=== PATIENT | male | born 1975 | race Caucasian/White ===

== ENCOUNTER 2018-03-08 09:03 | Inpatient (IN) | payer BC, OTHER ==
[2018-03-08] MEDS ORDERED: LIDOCAINE 1% 2 ML INJ ID PRN (12:30)
[2018-03-08] MEDS ORDERED: LR 1,000 ML IV ONE (12:30)
[2018-03-08] MEDS ORDERED: SURGIFLO MATRIX KIT WITH THROMBIN 8 ML TP ONE ×2 (13:01→15:52)
[2018-03-08] MEDS ORDERED: CHLORHEXIDINE GLUC HIBICLENS 118 ML BTL TP ONE (13:01)
[2018-03-08] MEDS ORDERED: BUPIVACAINE 0.25% 30 ML SDV ONE (13:01)
[2018-03-08] MEDS ORDERED: BACITRACIN 50,000 UNITS/10 ML SYR IRR ONE (13:02)
[2018-03-08] MEDS ORDERED: EPINEPHrine 1 MG/ML INJ ONE (13:02)
[2018-03-08] MEDS ORDERED: THROMBIN (BOVINE) 5,000 UNIT VIAL TP ONE (13:02)
[2018-03-08 13:11] LABS: PLATELET COUNT 233 10^3/uL (150-400)
[2018-03-08] MEDS ORDERED: MIDAZOLAM 2 MG/2 ML VIAL IVP ONE (13:23)
--- NOTE | 2018-03-08 13:23 | PDANEPAE ---
ANE History of Present Illness T10-L2 fusion ANE Past Medical History - Cardiovascular History Hx Hypertension: Yes Hx Arrhythmias: No Hx Chest Pain: No Hx Coronary Artery / Peripheral Vascular Disease: No Hx CHF / Valvular Disease: No Hx Palpitations: No - Pulmonary History Hx COPD: No Hx Asthma/Reactive Airway Disease: No Hx Recent Upper Respiratory Infection: No Hx Oxygen in Use at Home: No Hx Sleep Apnea: No Sleep Apnea Screening Result - Last Documented: Negative - Neurologic History Hx Cerebrovascular Accident: No Hx Seizures: No Hx Dementia: No - Endocrine History Hx Diabetes: No Obesity: yes - Renal History Hx Renal Disorders: No - Liver History Hx Hepatic Disorders: No - Neurological & Psychiatric Hx Hx Neurological and Psychiatric Disorders: Yes Neurological / Psychiatric History Comment: ADHD - Cancer History Hx Cancer: No - Congenital Disorder History Hx Congenital Disorders: No - GI History Hx Gastrointestinal Disorders: No - Other Health History Other Health History: NEG - Chronic Pain History Chronic Pain: Yes (BACK PAIN) - Surgical History Prior Surgeries: L ARM LYMPH NODE. HAND FX REPAIR R. HARDWARE REM R HAND. FOOT SURG FX REPAIR R. L THUMB LAC REPAIR ANE Review of Systems Review of Systems: - Exercise capacity METS (RN): 5 METS ANE Patient History - Allergies Allergies/Adverse Reactions: No Known Allergies Allergy (Unverified 03/07/18 15:37) - Home Medications Home Medications: Dextroamphetamine/Amphetamine [Adderall Xr 30 mg Capsule] 30 mg PO DAILY@07 [Last Taken 03/07/18] Lisinopril [Zestril 20 mg (*)] 20 mg PO HS 03/07/18 [Last Taken 03/07/18] Magnesium Oxide 250 mg PO DAILY 03/07/18 [Last Taken 03/07/18] Pramipexole Di-HCl [Mirapex 1 mg (*)] 1 mg PO 1800,2100 03/07/18 [Last Taken ] traZODone [traZODONE 50MG (*)] 150 mg PO HS 03/07/18 [Last Taken 03/07/18] - NPO status NPO Since - Liquids (Date): 03/08/18 NPO Since - Liquids (Time): 10:00 NPO Since - Solids (Date): 03/07/18 NPO Since - Solids (Time): 21:00 - Smoking Hx Smoking Status: Former smoker - Family Anes Hx Family Hx Anesthesia Complications: NEG ANE Labs/Vital Signs - Labs Result Diagrams: 03/08/18 12:56 - Vital Signs Blood Pressure: 131/82 Heart Rate: 78 Respiratory Rate: 18 O2 Sat (%): 95 Height: 185.42 cm Weight: 115.666 kg ANE Physical Exam - Airway Neck exam: FROM Mallampati Score: Class 1 - Pulmonary Pulmonary: no respiratory distress - Cardiovascular Cardiovascular: regular rate and rhythym - ASA Status ASA Status: II ANE Anesthesia Plan Anesthesia Plan: general endotracheal anesthesia Lines/Monitors: arterial line Specialized Airway: video laryngoscope
[2018-03-08] MEDS ORDERED: fentaNYL 100 MCG/2 ML INJ ONE ×3 (13:27→19:01)
[2018-03-08] MEDS ORDERED: REMIFENTANIL HCL 1 MG VIAL ONE ×3 (13:27→17:21)
[2018-03-08] MEDS ORDERED: MIDAZOLAM 2 MG/2 ML VIAL ONE (13:27)
[2018-03-08] MEDS ORDERED: PROPOFOL/EMULSION 500 MG/50 ML BOTTLE IV ONE ×3 (13:28→16:41)
[2018-03-08] MEDS ORDERED: ceFAZolin 2 GM/DEXTROSE 100 ML IV ONE (13:31)
--- NOTE | 2018-03-08 13:31 | PDHPUP ---
History & Physical Update H&P update statement: This history and physical update is based on an assessment of the patient which was completed after admission or registration (within 24 hours), but prior to the surgery/procedure. H&P update: H&P reviewed & patient examined, no change in patient's condition since H&P completed
[2018-03-08] MEDS ORDERED: CEFAZOLIN 2 GM/DEXTROSE/100 ML BAG IV ONE (13:41)
[2018-03-08] MEDS ORDERED: CITRATE DEXTROSE SOLN 500 ML BAG ONE (13:55)
[2018-03-08] MEDS ORDERED: POLYETHYLENE GLYCOL 3350 17 GM PKT PO PRN (14:07)
[2018-03-08] MEDS ORDERED: LACTULOSE 20 GM/30 ML UDCUP PO PRN (14:07)
[2018-03-08] MEDS ORDERED: diphenhydrAMINE 25 MG CAP PO PRN (14:07)
[2018-03-08] MEDS ORDERED: ONDANSETRON DISINTEGRATING 4 MG TAB PO PRN (14:07)
[2018-03-08] MEDS ORDERED: MAGNESIUM HYDROXIDE 30 ML UDCUP PO PRN (14:07)
[2018-03-08] MEDS ORDERED: ONDANSETRON 4 MG/2 ML VIAL IVP PRN ×2 (14:07→18:08)
[2018-03-08] MEDS ORDERED: BISACODYL 10 MG SUPP PR PRN (14:07)
[2018-03-08] MEDS ORDERED: ROCURONIUM 50 MG/5 ML VIAL ONE ×3 (14:33→15:23)
[2018-03-08] MEDS ORDERED: ONDANSETRON 4 MG/2 ML VIAL ONE (14:33)
[2018-03-08] MEDS ORDERED: DEXAMETHASONE 4 MG/ML VIAL ONE (14:33)
[2018-03-08] MEDS ORDERED: PHENYLEPHRINE 10 MG/ML SDV ONE (14:37)
--- NOTE | 2018-03-08 15:14 | POSTANESTH ---
Post Anesthetic Evaluation Cardiovascular Status: Normal, Stable Respiratory Status: Normal, Stable Level of Consciousness/Mental Status: Can Participate in Eval, Alert and Oriented Pain Control: Adequate, Prn Tx Ordered Nausea/Vomiting Control: Adequate, Prn Tx Ordered Complications Possibly Related to Anesthesia: None Noted
[2018-03-08] MEDS ORDERED: HYDROmorphONE/DILAUDID 2 MG/ML INJ ONE (15:25)
--- NOTE | 2018-03-08 17:20 | PDMN ---
Medical Necessity Medical necessity: Pt meets inpt criteria per MD order and [facility] S-820, Lumbar Fusion, 3 days. Est LOS>2MN for pt w/hx of thoracic spinal stenosis w/ radiculopathy here for surgical intervention: T11-T12 Lumbar discectomy, T11-L1 Lumbar fusion requiring inpt hospitalization for monitoring/treatment, pain management, PT/OT evals pending.
[2018-03-08] MEDS ORDERED: BUPIVACAINE 0.5% 30 ML SDV ONE (17:38)
[2018-03-08] MEDS ORDERED: ESMOLOL HCL 100 MG/10 ML VIAL IV ONE (17:39)
[2018-03-08] MEDS ORDERED: PHENYLEPHRINE HCL 100 MCG/ML SYR IVP PRN (18:08)
[2018-03-08] MEDS ORDERED: oxyCODONE IR 5 MG TAB PO PRN (18:08)
[2018-03-08] MEDS ORDERED: HYDROCODONE/APAP 5/325 TAB PO PRN (18:08)
[2018-03-08] MEDS ORDERED: NALOXONE HCL 0.4 MG/ML INJ IVP PRN ×2 (18:08→21:01)
[2018-03-08] MEDS ORDERED: ALBUTEROL 3 ML DEYVIAL IH PRN (18:08)
[2018-03-08] MEDS ORDERED: ACETAMINOPHEN 500 MG TAB PO PRN (18:08)
[2018-03-08] MEDS ORDERED: PROMETHAZINE HCL 25 MG/ML INJ IVP PRN (18:08)
[2018-03-08] MEDS ORDERED: LABETALOL HCL 5 MG/ML 20 ML MDV IVP PRN (18:08)
[2018-03-08] MEDS ORDERED: LR 500 ML IV PRN (18:08)
[2018-03-08] MEDS ORDERED: LABETALOL HCL 5 MG/ML 20 ML MDV ONE (18:54)
[2018-03-08] MEDS: fentaNYL 100 MCG/2 ML INJ IVP PRN ×2 (19:02→19:12)
--- NOTE | 2018-03-08 19:03 | NEUSURGPN ---
Date of Surgery: 03/08/18 Post Op Day: 0 Assessment/Plan: 42M s/p T11/12 discectomy and T11-L1 fusion. To Floor ADAT neuro checks q4h optimize pain management JPx1 to full suction DVT ppx- RAMESH's, SCD's, lovenox POD#1 MRI in AM upright post op XRays when able to give good effort PT/OT Dispo planning dw Dr. Peter Subjective: having a great deal of post operative right leg pain, worse than prior to surgery. also with some left leg pain. hurts to lift leg as well. Objective: VSS NAD Alert, post anesthesia no facial droop MAEx4, 5/5= SILT incision dressed, CDI JPx1 Urinary Catheter in Place: Yes Urinary Catheter Indication: Other (Use Comment) (out in am) - Physician Discussed Patient with Dr.: Peter Neurosurgery Physical Exam - Vitals, I&O, Labs I and O 03/07/18 03/08/18 03/09/18 05:59 05:59 05:59 Weight 115.666 kg 115.666 kg Vital Signs Temp Pulse Resp BP Pulse Ox 36.9 C 78 18 131/82 H 95 03/08/18 12:46 03/08/18 13:23 03/08/18 13:23 03/08/18 13:23 03/08/18 13:23 Laboratory Results 03/08/18 12:56 ICD10 Worksheet Patient Problems: Problems Problem Status Onset Thoracic spinal stenosis Acute Thoracic spinal stenosis Acute - ICD10 Problem Qualifiers (1) Thoracic spinal stenosis (2) Thoracic spinal stenosis
--- NOTE | 2018-03-08 19:04 | POSTOPPROG ---
Post Op Note Date of Operation: 03/08/18 Surgeon: Obey Rasheed Lead Systems Analyst: Obey Rasheed Anesthesiologist: jd Ozuna Anesthesia: GET(General Endotracheal) Pre-op Diagnosis: thoracic spinal stenosis with radiculopathy Post-op Diagnosis: thoracic spinal stenosis with radiculopathy Indication: spinal cord compression Procedure: T11/12 microdiscectomy, pedicle osteotomy, T11-L1 PSF Findings: well decompressed thoracic spine at T11/12 Inf/Abcess present in the surg proc area at time of surgery?: No Depth: Organ Space EBL: 100-500
[2018-03-08] MEDS ORDERED: HYDROmorphONE/DILAUDID 1 MG/ML INJ ONE ×3 (19:08→21:04)
[2018-03-08] MEDS: HYDROmorphONE/DILAUDID 1 MG/ML INJ IVP PRN ×6 (19:11→21:18)
[2018-03-08] MEDS ORDERED: DIAZEPAM 5 MG/ML 1 ML SYR ONE ×2 (19:14→20:09)
[2018-03-08] MEDS: DIAZEPAM 5 MG/ML 1 ML SYR IVP PRN ×4 (19:17→21:10)
[2018-03-08] MEDS ORDERED: METHOCARBAMOL 1,000 MG in NS 50 ML IVP ONE (19:25)
[2018-03-08] MEDS ORDERED: GABAPENTIN 300 MG CAP PO SCH (22:00)
[2018-03-08] MEDS: DEXMEDETOMIDINE HCL 400 MCG in NS 100 ML IV SCH (22:29)
[2018-03-08] MEDS ORDERED: DEXAMETHASONE 10 MG/ML VIAL IV ONE (22:30)
[2018-03-08] MEDS ORDERED: DEXAMETHASONE 4 MG/ML VIAL IVP SCH (22:30)
[2018-03-08] MEDS: ceFAZolin 2 GM/DEXTROSE 100 ML IV SCH (22:32)
[2018-03-08] MEDS: LISINOPRIL 20 MG TAB PO SCH (22:45)
[2018-03-08] MEDS: ACETAMINOPHEN 500 MG TAB PO SCH (22:45)
[2018-03-08] MEDS: traZODone 50 MG TAB PO SCH (22:46)
[2018-03-08] MEDS: FAMOTIDINE 20 MG TAB PO SCH (22:46)
[2018-03-08] MEDS: SENNOSIDES/DOCUSATE SODIUM TAB PO SCH (22:46)
[2018-03-09] MEDS: DEXMEDETOMIDINE HCL 400 MCG in NS 100 ML IV SCH ×5 (01:44→21:53)
[2018-03-09] MEDS: PRAMIPEXOLE 1 MG TAB PO SCH ×3 (02:50→21:44)
[2018-03-09] MEDS: PREGABALIN 100 MG CAP PO SCH ×4 (02:51→21:44)
[2018-03-09] MEDS: DEXAMETHASONE 4 MG/ML VIAL IVP SCH ×3 (04:00→15:30)
[2018-03-09] MEDS: ACETAMINOPHEN 500 MG TAB PO SCH ×3 (05:19→21:44)
[2018-03-09] MEDS: ceFAZolin 2 GM/DEXTROSE 100 ML IV SCH ×2 (05:25→15:00)
[2018-03-09] MEDS: oxyCODONE IR 5 MG TAB PO PRN ×4 (05:40→16:09)
[2018-03-09] MEDS: AMPHETAMINE PO SCH (07:58)
[2018-03-09] MEDS: DEXTROAMPHETAMINE PO SCH (07:58)
[2018-03-09] MEDS: ENOXAPARIN 40 MG/0.4 ML SYR SC SCH (08:21)
[2018-03-09] MEDS: METHOCARBAMOL 750 MG TAB PO PRN ×2 (08:22→14:14)
[2018-03-09] MEDS: FAMOTIDINE 20 MG TAB PO SCH ×2 (08:22→21:44)
[2018-03-09] MEDS: SENNOSIDES/DOCUSATE SODIUM TAB PO SCH ×2 (08:22→21:44)
--- NOTE | 2018-03-09 09:57 | NEUSURGPN ---
Assessment/Plan: 42M s/p T11/12 discectomy and T11-L1 fusion POD1 neuro checks q4h optimize pain management- On Lyrica already JPx1 to full suction DVT ppx- RAMESH's, SCD's, lovenox MRI pending upright post op X-rays when able to give good effort PT/OT dw Dr. Peter Subjective: right anterior oglesby pain Objective: NAD Alert, post anesthesia no facial droop MAEx4, 5/5= SILT, increased pain to touch over right anterior oglesby incision dressed, CDI JPx1 - Physician Discussed Patient with Dr.: Peter Neurosurgery Physical Exam - Vitals, I&O, Labs I and O 03/08/18 03/09/18 03/10/18 05:59 05:59 05:59 Intake Total 6670 700 Output Total 3950 30 Balance 2720 670 Weight 115.666 kg 115.666 kg Intake: Oral (ml) 1270 700 IV Intake (ml) 5400 Output: Urine (ml) 2720 Catheter 2720 Estimated Blood Loss (ml) 1000 ANDI Drain Output (ml) 230 30 Back Valentin Kraft 230 30 Other: Number of Stools Catheter 0 Vital Signs Temp Pulse Resp BP Pulse Ox 36.6 C 77 18 110/68 97 03/09/18 07:35 03/09/18 07:35 03/09/18 07:35 03/09/18 07:35 03/09/18 07:35 Laboratory Results 03/08/18 12:56 ICD10 Worksheet Patient Problems: Problems Problem Status Onset Thoracic spinal stenosis Acute Thoracic spinal stenosis Acute
[2018-03-09] MEDS ORDERED: ALBUMIN 5% 500 ML IV ONE ×2 (14:06→14:30)
[2018-03-09] MEDS ORDERED: ALBUMIN 5% 500 ML BOTTLE IV ONE (14:10)
[2018-03-09] MEDS ORDERED: PATCH REMOVAL 1 EA PATCH TD PRN (14:12)
[2018-03-09] MEDS ORDERED: DIAZEPAM 5 MG TAB PO ONE (14:15)
--- NOTE | 2018-03-09 14:22 | ASMTCMCOM ---
CM Note CM Note Notes: Pt admitted to hospital for T11 - T12 discectomy and fusion on 03/08. Pain now managed with IV pain medications. Pt lives at home with Doris. Therapies are recommending discharge home independently with 24-hr supervision and outpatient PT. D/C Plan: Home independently with Date Signed: 03/09/2018 02:22 PM Electronically Signed By:Vilma Alaniz
[2018-03-09] MEDS ORDERED: NS 1,000 ML IV ONE (14:30)
[2018-03-09] MEDS: LIDOCAINE 4%/MENTHOL 1% PATCH TD PRN (14:30)
[2018-03-09] MEDS ORDERED: DOPamine/DEXTROSE 400 MG/250 ML BAG IV ONE (14:51)
[2018-03-09] MEDS ORDERED: ALTEPLASE 2 MG VIAL IVP PRN (15:25)
[2018-03-09] MEDS: HYDROmorphONE/DILAUDID 1 MG/ML INJ IVP PRN (16:09)
[2018-03-09] MEDS ORDERED: DIAZEPAM 5 MG TAB PO PRN (16:55)
--- NOTE | 2018-03-09 17:12 | CPEKG ---
Test Reason : OPEN Blood Pressure : / mmHG Vent. Rate : 057 BPM Atrial Rate : 056 BPM P-R Int : 142 ms QRS Dur : 095 ms QT Int : 423 ms P-R-T Axes : 020 -11 -04 degrees QTc Int : 412 ms Sinus rhythm Borderline T abnormalities, inferior leads Confirmed by Hima Pat ([id number]) on 03/09/2018 5:11:30 PM Referred By: Confirmed By:Hima Pat
[2018-03-09] MEDS ORDERED: DEXAMETHASONE 4 MG/ML VIAL IVP SCH (17:15)
[2018-03-09] MEDS: morphINE PCA 30 MG/30 ML PCA IV PRN (19:05)
[2018-03-09] MEDS: traZODone 50 MG TAB PO SCH (21:43)
[2018-03-10] MEDS: DEXAMETHASONE 4 MG/ML VIAL IVP SCH ×2 (04:07→15:33)
[2018-03-10] MEDS: DEXMEDETOMIDINE HCL 400 MCG in NS 100 ML IV SCH ×3 (04:07→18:32)
[2018-03-10] MEDS: ACETAMINOPHEN 500 MG TAB PO SCH ×3 (05:19→23:45)
[2018-03-10] MEDS: oxyCODONE IR 5 MG TAB PO PRN ×4 (05:19→20:31)
--- NOTE | 2018-03-10 05:35 | GCON ---
[f rep st] CONSULTATION CRITICAL CARE CONSULTATION DATE OF CONSULTATION: 03/09/2018 REASON FOR CONSULTATION: Intensive care unit evaluation and medical management following thoracic spine surgery from T11-L1. HISTORY: The patient is a 42-year-old with severe thoracic stenosis and disk herniation with cord compression. He underwent elective surgery yesterday with T11/T12 diskectomy and fusion from T11-L1. He was admitted to the intensive care unit secondary to pain management. He has had significant pain associated with spasm and anxiety. Blood pressure has been an issue, with lower blood pressures problematic secondary to pain and sedative medications. PAST MEDICAL HISTORY: Remarkable for attention deficit disorder, hypertension, and depression. Other problems include nocturnal myoclonus and hepatitis C positivity. OUTPATIENT MEDICATIONS: Include Adderall, lisinopril, trazodone, and pramipexole. PRIMARY CARE PHYSICIAN: Hima Liriano MD. DRUG ALLERGIES: None. SOCIAL HISTORY: The patient is . Tobacco and significant alcohol are negative. He did smoke previously. FAMILY HISTORY: Noncontributory. REVIEW OF SYSTEMS: A 10-point review of systems is negative except as mentioned above. PHYSICAL EXAMINATION: GENERAL: Reveals a gentleman who appears to be having spasms from back pain. He is anxious. VITAL SIGNS: Blood pressure is approximately 85/45, heart rate 65 with sinus rhythm on the monitor. Respiratory rate is 16. On room air, saturations are 95%. HEENT: Unremarkable for lymphadenopathy or thyromegaly. Pupils are equal. There is no jugular venous distention. CHEST: Clear bilaterally. HEART: Regular in rate and rhythm. There are no murmurs, no gallops. ABDOMEN: Soft, nontender. Bowel sounds are diminished. EXTREMITIES: The right lower extremity is sensitive to touch. There is no edema. A Luna catheter is in place. There is good urine output. Valentin-Kraft drain in place with a small amount of bloody drainage. DATA BASE: White blood cell count is 6,300, hematocrit 44, platelets are 233, 000. Sodium is 133 with a potassium of 4.6. BUN and creatinine are normal, glucose 141. Calcium 8. Phosphorus, magnesium, and troponin are all normal. EKG is unremarkable for any acute changes. ASSESSMENT: 1. Spinal stenosis, status post diskectomy and fusion. 2. Back pain secondary to #1. This is associated with back spasms. 3. Hypotension. This is primarily secondary to medications used for pain and anxiety. He is on narcotics as well as benzodiazepines and has been on Precedex intermittently. All these have affected his blood pressure. In addition, a component of relative volume depletion may be playing a role as he has responded to crystalloid and colloid. Dopamine will be used temporarily as he is bradycardic as well as hypotensive. Intravenous fluids will be continued. This will allow adequate pain medication and sedation. 4. Metabolic: Mild hyponatremia. Mild hyperglycemia. No other issues identified. The hyperglycemia is in part secondary to steroids. He is on dexamethasone. 5. Prophylaxis: He is on enoxaparin and famotidine. 6. History of hypertension. Lisinopril will be held. PLAN AND RECOMMENDATIONS: The patient will be kept in the intensive care unit. A PICC line will be requested for adequate venous access. Dopamine will be given. Precedex will be continued for now. Ativan will be ordered for anxiety. Pain control will be continued as currently ordered. Acetaminophen and lidocaine patches will be used to try to decrease opiate requirements. Lyrica also has been ordered. Steroids are being given. P.r.n. albumin 5% will be given. Clinical status and laboratory will be followed. Further plans and recommendations will be made based on his progress over the next 12-24 hours. /[id number]/MODL MTDD
--- NOTE | 2018-03-10 06:54 | NEUSURGPN ---
Date of Surgery: 03/08/18 Post Op Day: 2 Assessment/Plan: Assessment: 42 yo male that is s/p T11/12 discectomy and T11-L1 fusion POD #2 Plan: -s/p T-L spine fusion: pt with expected lower back pain -pt has has some SBP issues that is better this am -continue with neuro checks q4h -optimize pain management- On Lyrica already-will increase the dose -ANDI x 1 to full suction-will likely remove tomorrow -DVT ppx- RAMESH's, SCD's, lovenox -MRI pending of T spine -upright post op X-rays of T-L spine pending-when able to give good effort -labs ordered -PT/OT-CPM -dw Dr. Peter -call with any questions or concerns Subjective: Awake and alert. NAD. Eating/drinking and voiding. No f/c/n/v/d. No malik/neck/ chest/abd or gu complaints. Pt with continued RLE pain Objective: NAD, AAO x 3, PERRLA/EOMI no facial droop MAEx4, 5/5= SILT, increased pain to touch over right anterior oglesby c/w hx incision dressed, CDI ANDI x 1 Neuro Check Frequency: per routine Urinary Catheter in Place: No Catheter Insertion Date: 03/08/18 - Physician Discussed Patient with : Brittani Neurosurgery Physical Exam - Vitals, I&O, Labs I and O 03/09/18 03/10/18 03/11/18 05:59 05:59 05:59 Intake Total 6670 6331 Output Total 3950 7255 Balance 2720 -924 Weight 115.666 kg Intake: Oral (ml) 1270 3000 IV Intake (ml) 5400 340 IV Infused (ml) 2991 Albumin 5% 500 ml @ As 1000 Directed IV ONCE ONE Rx#: [id number] DOPamine/DEXTROSE 250 ml 543 @ Titrate IV CONT [facility] Rx# :[id number] Dexmedetomidine HCl 400 448 mcg In Ns 100 ml @ Per Protocol IV CONT TRESSA Rx#: [id number] Ns 1,000 ml @ As Directed 1000 IV ONCE ONE Rx#: [id number] Output: Urine (ml) 2720 7150 Catheter 2720 7150 Estimated Blood Loss (ml) 1000 ANDI Drain Output (ml) 230 105 Back Valenitn Kraft 230 105 Other: Number of Stools Catheter 0 0 Vital Signs Temp Pulse Resp BP Pulse Ox 37.2 C 54 L 11 L 106/53 L 93 03/10/18 04:00 03/10/18 06:00 03/10/18 06:00 03/10/18 06:00 03/10/18 06:00 Laboratory Results 03/09/18 12:55 03/09/18 14:00 ICD10 Worksheet Patient Problems: Problems Problem Status Onset Thoracic spinal stenosis Acute Thoracic spinal stenosis Acute
[2018-03-10] MEDS: DEXTROAMPHETAMINE PO SCH (07:46)
[2018-03-10] MEDS: AMPHETAMINE PO SCH (07:46)
[2018-03-10] MEDS: ENOXAPARIN 40 MG/0.4 ML SYR SC SCH (08:27)
[2018-03-10] MEDS: METHOCARBAMOL 750 MG TAB PO PRN ×3 (08:27→20:31)
[2018-03-10] MEDS: FAMOTIDINE 20 MG TAB PO SCH ×2 (08:27→20:32)
[2018-03-10] MEDS: SENNOSIDES/DOCUSATE SODIUM TAB PO SCH ×2 (08:27→20:31)
[2018-03-10] MEDS: PREGABALIN 100 MG CAP PO SCH ×3 (08:27→20:31)
[2018-03-10] MEDS ORDERED: ALBUMIN 5% 500 ML BOTTLE IV ONE (11:58)
[2018-03-10] MEDS ORDERED: ALBUMIN 5% 500 ML IV ONE (12:52)
--- NOTE | 2018-03-10 13:01 | PDINTPN ---
Bridge Teacher Progress Note Assessment/Plan: Assessment: Status post thoracolumbar decompression and fusion. Postoperative pain. Remains an issue, improving. On multiple medications. We cannot take away all his pain. Hypotension. Blood pressure is borderline. Secondary to medications. On dopamine as needed to maintain a MAP of approximately 65 or above. Metabolic: No issues identified. Prophylaxis: On Lovenox, eating. History of ADD, nocturnal myoclonus. Stable. Leukocytosis: Secondary to steroids. Plan: Continue care and present medications in the intensive care unit on step- down. Continue pain medication/control. Continue IV fluids and colloid, with dopamine as needed for blood pressure. Follow laboratory, CBC. Increase activity as tolerated. Per neuro surgery. 30 min of critical care time spent directly with the patient. Discussed with the patient's significant other, nursing, and the ICU multi disciplinary team. Subjective: Complains of back and leg pain. On morphine SKIN DIVER on dopamine for borderline blood pressures. Off Precedex currently. Objective: Vital Signs Temp Pulse Resp BP Pulse Ox 36.8 C 49 L 10 L 83/46 L 97 03/10/18 07:00 03/10/18 12:00 03/10/18 12:00 03/10/18 12:00 03/10/18 12:00 Laboratory Results 03/10/18 08:40 03/10/18 08:40 03/09/18 03/10/18 03/11/18 05:59 05:59 05:59 Intake Total 6670 6331 Output Total 3950 7255 700 Balance 7180 -924 -700 Laboratory Tests 03/10/18 08:40 Calcium 8.7 Total Bilirubin 0.4 AST 32 ALT 31 Albumin 3.5 Physical Exam - Physical Exam General Appearance: alert, no apparent distress, other (Up in the chair) EENT: PERRL/EOMI, other (Nasal cannula in place at 2 L) Neck: normal inspection (No obvious JVD, large neck) Respiratory: lungs clear, decreased breath sounds (At bases) Abdomen: non-tender, soft, No normal bowel sounds (Decreased, present) Back: Other (ANDI in place, dressed.) Skin: normal color, warm/dry Extremities: No pedal edema Neuro/Psych: no motor/sensory deficits (Right lower extremity sensitive to touch ) ICD10 Worksheet Patient Problems: Problems Problem Status Onset Thoracic spinal stenosis Acute Thoracic spinal stenosis Acute
[2018-03-10] MEDS: LORazepam 2 MG/ML INJ IVP PRN (15:52)
[2018-03-10] MEDS: morphINE PCA 30 MG/30 ML PCA IV PRN (15:52)
[2018-03-10] MEDS: PRAMIPEXOLE 1 MG TAB PO SCH ×2 (18:31→20:31)
[2018-03-10] MEDS: traZODone 50 MG TAB PO SCH (20:32)
[2018-03-11] MEDS: ACETAMINOPHEN 500 MG TAB PO SCH ×5 (00:37→21:23)
[2018-03-11] MEDS: oxyCODONE IR 5 MG TAB PO PRN ×2 (00:38→04:58)
[2018-03-11] MEDS: DEXAMETHASONE 4 MG/ML VIAL IVP SCH ×2 (04:57→15:47)
[2018-03-11] MEDS: METHOCARBAMOL 750 MG TAB PO PRN ×2 (04:58→11:17)
[2018-03-11] MEDS: DEXMEDETOMIDINE HCL 400 MCG in NS 100 ML IV SCH (04:58)
--- NOTE | 2018-03-11 05:37 | NEUSURGPN ---
Date of Surgery: 03/08/18 Post Op Day: 3 Assessment/Plan: Assessment: 42 yo male that is s/p T11/12 discectomy and T11-L1 fusion POD #3 Plan: -s/p T-L spine fusion: pt with expected lower back pain -pt has had some SBP issues that is better overall -continue with neuro checks q4h -optimize pain management- On Lyrica already -plan to wean precedex and transfer to floor if ok with critical care -ANDI x 1 to full suction-outpt at 40 overnight -DVT ppx- RAMESH's, SCD's, lovenox -MRI T spine reviewed. I will review it with Dr Peter today -upright post op X-rays of T-L spine pending-when able to give good effort -labs ordered-pending -PT/OT-CPM -will dw Dr. Peter later this am -call with any questions or concerns Subjective: Awake and alert. Pt states he is better than yesterday. Ambulating. No malik/neck/ chest/abd or gu complaints. No f/c/n/v/d. Objective: NAD, AAO x 3, PERRLA/EOMI no facial droop MAEx4, 5/5= SILT, increased pain to touch over right anterior oglesby c/w hx incision dressed, CDI ANDI x 1 Neuro Check Frequency: per routine Urinary Catheter in Place: No Catheter Insertion Date: 03/08/18 - Physician Discussed Patient with : Brittani Neurosurgery Physical Exam - Vitals, I&O, Labs I and O 03/09/18 03/10/18 03/11/18 05:59 05:59 05:59 Intake Total 6670 8891 3928 Output Total 3950 7255 1955 Balance 2720 -924 1973 Weight 115.666 kg 115.7 kg Intake: Oral (ml) 1270 3000 3250 IV Intake (ml) 5400 340 410 IV Infused (ml) 2991 268 Albumin 5% 500 ml @ As 1000 Directed IV ONCE ONE Rx#: [id number] DOPamine/DEXTROSE 250 ml 543 53 @ Titrate IV CONT TRESSA Rx# :[id number] Dexmedetomidine HCl 400 448 207 mcg In Ns 100 ml @ Per Protocol IV CONT [facility] Rx#: [id number] Ns 1,000 ml @ As Directed 1000 IV ONCE ONE Rx#: [id number] morphINE CONSTRUCTION CHECKER See Protocol 8 IV PRN PRN Rx#: [id number] Output: Urine (ml) 2720 7150 1850 Catheter 2720 7150 700 Urinal 1150 Estimated Blood Loss (ml) 1000 ANDI Drain Output (ml) 230 105 105 Back Valentin Kraft 230 105 105 Other: Intake Quantity Yes Sufficient Output Comment Urinal Straight Cath Number of Voids Toilet 1 Number of Stools Catheter 0 0 Toilet 0 Bladder Scan Volume (ml) Urinal 1,000 Vital Signs Temp Pulse Resp BP Pulse Ox 35.9 C L 57 L 12 108/59 L 96 03/11/18 04:00 03/11/18 05:00 03/11/18 05:00 03/11/18 05:00 03/11/18 05:00 ICD10 Worksheet Patient Problems: Problems Problem Status Onset Thoracic spinal stenosis Acute Thoracic spinal stenosis Acute
[2018-03-11 05:38] LABS: PLATELET COUNT 182 10^3/uL (150-400)
[2018-03-11] MEDS: DEXTROAMPHETAMINE PO SCH (06:36)
[2018-03-11] MEDS: AMPHETAMINE PO SCH (06:36)
[2018-03-11] MEDS: PREGABALIN 100 MG CAP PO SCH ×4 (09:13→21:23)
[2018-03-11] MEDS: ENOXAPARIN 40 MG/0.4 ML SYR SC SCH (09:14)
[2018-03-11] MEDS: SENNOSIDES/DOCUSATE SODIUM TAB PO SCH ×2 (09:14→21:23)
[2018-03-11] MEDS: FAMOTIDINE 20 MG TAB PO SCH ×2 (09:14→21:23)
[2018-03-11] MEDS: LIDOCAINE 4%/MENTHOL 1% PATCH TD PRN (09:15)
[2018-03-11] MEDS: morphINE PCA 30 MG/30 ML PCA IV PRN ×2 (10:39→18:46)
--- NOTE | 2018-03-11 13:42 | PDINTPN ---
Lamp Shade Joiner Progress Note Assessment/Plan: Assessment: Status post thoracolumbar decompression and fusion. Postoperative pain. Improving, but still present. Back and right lower extremity both involved. Off Precedex. On multiple other medications. We cannot take away all his pain. Hypotension. Blood pressure better today. Off dopamine now. Probably will not need to be restarted so will DC. Metabolic: No issues identified. Prophylaxis: On Lovenox, eating. History of ADD, nocturnal myoclonus. Stable. Leukocytosis: Secondary to steroids. Plan: Continue care in the intensive care unit on step-down. Will leave Precedex on the SEP in case this is needed tonight. If not, discontinued tomorrow, discontinue dopamine today. Continue pain medication/control. Follow laboratory, CBC intermittently as indicated. Increase activity as tolerated. Otherwise per neuro surgery. 30 min of critical care time spent directly with the patient. Discussed with the patient's , nursing, and the ICU multi disciplinary team. Subjective: Back and leg pain both remain present but are improving. Ambulating with assistance. Limited more by leg then back. Objective: Vital Signs Temp Pulse Resp BP Pulse Ox 36.9 C 65 18 124/70 H 94 03/11/18 12:00 03/11/18 12:00 03/11/18 12:00 03/11/18 12:00 03/11/18 12:00 Laboratory Results 03/11/18 05:30 03/11/18 05:30 03/10/18 03/11/18 03/12/18 05:59 05:59 05:59 Intake Total 633 3928 300 Output Total 7255 1955 25 Balance -924 1973 275 Physical Exam - Physical Exam General Appearance: alert, no apparent distress, other (Up in chair) EENT: PERRL/EOMI Neck: normal inspection (On room air) Respiratory: lungs clear Cardiac/Chest: regular rate, rhythm, No gallop Abdomen: non-tender, soft, No normal bowel sounds (Decreased, present) Back: Other (Incision dressed. Valentin Kraft drain in place.) Skin: normal color, warm/dry Extremities: No pedal edema Neuro/Psych: No no motor/sensory deficits (Right lower extremity remains sensitive to touch. Possibly weak compared to the left.), No cognition abnormalities ICD10 Worksheet Patient Problems: Problems Problem Status Onset Thoracic spinal stenosis Acute Thoracic spinal stenosis Acute
[2018-03-11] MEDS: PRAMIPEXOLE 1 MG TAB PO SCH ×2 (19:02→21:23)
[2018-03-11] MEDS: traZODone 50 MG TAB PO SCH (21:23)
[2018-03-12] MEDS: DEXAMETHASONE 4 MG/ML VIAL IVP SCH ×2 (04:49→16:08)
[2018-03-12] MEDS: ACETAMINOPHEN 500 MG TAB PO SCH ×3 (04:50→21:54)
[2018-03-12] MEDS: oxyCODONE IR 5 MG TAB PO PRN ×4 (05:22→18:27)
[2018-03-12] MEDS: morphINE PCA 30 MG/30 ML PCA IV PRN ×2 (05:45→14:20)
[2018-03-12] MEDS: SENNOSIDES/DOCUSATE SODIUM TAB PO SCH ×2 (08:11→20:48)
[2018-03-12] MEDS: ENOXAPARIN 40 MG/0.4 ML SYR SC SCH (08:12)
[2018-03-12] MEDS: FAMOTIDINE 20 MG TAB PO SCH ×2 (08:12→20:48)
[2018-03-12] MEDS: PREGABALIN 150 MG CAP PO SCH ×3 (08:12→20:47)
[2018-03-12] MEDS: DEXTROAMPHETAMINE PO SCH (08:13)
[2018-03-12] MEDS: AMPHETAMINE PO SCH (08:13)
--- NOTE | 2018-03-12 09:00 | PDINTPN ---
Director Clinical Pharmacology Progress Note Assessment/Plan: Assessment/plan: * Chronic back pain * Status post T11/T12 discectomy and T11-L1 fusion * Pain-reasonably well controlled. Is complaining of pain of the right lower leg * Hypotension-resolved * History of hypertension * Hepatitis-C * Attention deficit disorder/depression * VT prophylaxis * Stress ulcer prophylaxis * PT/OT-out of bed to chair Subjective: Sitting up in chair. Resting comfortably. Pain is reasonably well controlled. Objective: Vital Signs Temp Pulse Resp BP Pulse Ox 36.6 C 57 L 17 134/92 H 99 03/12/18 08:00 03/12/18 08:00 03/12/18 08:00 03/12/18 08:00 03/12/18 08:00 Laboratory Results 03/11/18 05:30 03/11/18 05:30 03/11/18 03/12/18 03/13/18 05:59 05:59 05:59 Intake Total 3922078.2 Output Total 1954 50 Balance 1973 2028.2 - Time Spent With Patient Time Spent With Patient: 25 min of time spent with patient, over 1/2 involved with coordination of care counseling. Case discussed with nursing Physical Exam - Physical Exam General Appearance: WD/WN, alert, no apparent distress EENT: PERRL/EOMI, normal ENT inspection, pharynx normal, TMs normal Neck: non-tender, full range of motion, supple, normal inspection Respiratory: chest non-tender, lungs clear, normal breath sounds Cardiac/Chest: normal peripheral pulses, regular rate, rhythm Peripheral Pulses: 2+: carotid (R), carotid (L), femoral (R), femoral (L), dorsalis-pedis (R), dorsalis-pedis (L) Abdomen: normal bowel sounds, non-tender, soft Male Genitalia: deferred Rectal: deferred Skin: normal color, warm/dry Extremities: No non-tender Neuro/Psych: alert, oriented x 3 ICD10 Worksheet Patient Problems: Problems Problem Status Onset Thoracic spinal stenosis Acute Thoracic spinal stenosis Acute
--- NOTE | 2018-03-12 10:39 | NEUSURGPN ---
Date of Surgery: 03/08/18 Post Op Day: 4 Assessment/Plan: Assessment: 42 yo male that is s/p T11/12 discectomy and T11-L1 fusion POD #4 Plan: -s/p T-L spine fusion: pt with expected lower back pain -continue with neuro checks q4h -optimize pain management- On Lyrica already which we will increase dosage today -ANDI x 1 to full suction-continue -DVT ppx- RAMESH's, SCD's, lovenox -upright post op X-rays show stable post op hardware placement -PT/OT-CPM Patient discussed with Dr Peter Please call neurosurgery with questions/concerns Subjective: Right oglesby pain Objective: AxO x3 MAEx4 5/5 BUE, BLE, limited RLE exam due to pain SILT, increased pain to touch over right anterior oglesby c/w hx incision dressed, CDI ANDI x 1 Neuro Check Frequency: per routine Urinary Catheter in Place: No Catheter Insertion Date: 03/08/18 - Physician Discussed Patient with : Brittani Neurosurgery Physical Exam - Vitals, I&O, Labs I and O 03/11/18 03/12/18 03/13/18 05:59 05:59 05:59 Intake Total 3928 2079.2 480 Output Total 1955 50 43 Balance 1973 9.2 437 Weight 115.7 kg 116 kg Intake: Oral (ml) 3250 1900 480 IV Intake (ml) 410 131 IV Infused (ml) 268 48.2 DOPamine/DEXTROSE 250 ml 53 3.2 @ Titrate IV CONT TRESSA Rx# :[id number] Dexmedetomidine HCl 400 207 mcg In Ns 100 ml @ Per Protocol IV CONT TRESSA Rx#: [id number] 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 See Protocol 8 45 IV PRN PRN Rx#: [id number] Output: Urine (ml) 1850 Catheter 700 Urinal 1150 ANDI Drain Output (ml) 105 50 43 Back Valentin Kraft 105 50 43 Other: Intake Quantity Yes Yes Sufficient Output Comment Urinal Straight Cath Number of Voids Toilet 1 4 1 Number of Stools Toilet 0 1 Bladder Scan Volume (ml) Urinal 1,000 Vital Signs Temp Pulse Resp BP Pulse Ox 36.6 C 57 L 17 134/92 H 99 03/12/18 08:00 03/12/18 08:00 03/12/18 08:00 03/12/18 08:00 03/12/18 08:00 Laboratory Results 03/11/18 05:30 03/11/18 05:30 ICD10 Worksheet Patient Problems: Problems Problem Status Onset Thoracic spinal stenosis Acute Thoracic spinal stenosis Acute
--- NOTE | 2018-03-12 14:29 | ASMTCMCOM ---
CM Note CM Note Notes: Therapies have cleared pt to d/c home independent with supportive . No other needs at this time. CM available for changes. Plan: Independent Date Signed: 03/12/2018 02:29 PM Electronically Signed By:ROBERT Contreras
[2018-03-12] MEDS: PRAMIPEXOLE 1 MG TAB PO SCH ×2 (18:27→20:47)
[2018-03-12] MEDS: traZODone 50 MG TAB PO SCH (20:47)
[2018-03-12] MEDS: LISINOPRIL 20 MG TAB PO SCH (20:48)
[2018-03-12] MEDS: DEXMEDETOMIDINE HCL 400 MCG in NS 100 ML IV SCH (21:15)
[2018-03-13] MEDS: DEXAMETHASONE 4 MG/ML VIAL IVP SCH ×2 (05:21→16:09)
[2018-03-13] MEDS: morphINE PCA 30 MG/30 ML PCA IV PRN (06:18)
[2018-03-13] MEDS: ACETAMINOPHEN 500 MG TAB PO SCH ×3 (06:37→20:24)
--- NOTE | 2018-03-13 08:55 | NEUSURGPN ---
Assessment/Plan: Assessment: 42 yo male that is s/p T11/12 discectomy and T11-L1 fusion POD # Plan: -s/p T-L spine fusion: pt with expected lower back pain -continue with neuro checks q4h -optimize pain management- Will order long acting MsContin today to try and wean off Precedex -ANDI x 1 to full suction-continue -DVT ppx- RAMESH's, SCD's, lovenox -upright post op X-rays show stable post op hardware placement -PT/OT-CPM Patient discussed with Dr Peter Please call neurosurgery with questions/concerns Subjective: Right oglesby pain Objective: Objective: AxO x3 MAEx4 5/5 BUE, BLE, limited RLE exam due to pain SILT, increased pain to touch over right anterior oglesby incision dressed, CDI ANDI x 1 Catheter Insertion Date: 03/08/18 - Physician Discussed Patient with : Brittani Neurosurgery Physical Exam - Vitals, I&O, Labs I and O 03/12/18 03/13/18 03/14/18 05:59 05:59 05:59 Intake Total 2079.2 2562.5 Output Total 50 85 Balance 2029.2 2477.5 Weight 116 kg 116 kg Intake: Oral (ml) 1900 2060 IV Intake (ml) 131 380 IV Infused (ml) 48.2 122.5 DOPamine/DEXTROSE 250 ml 3.2 @ Titrate IV CONT TRESSA Rx# :[id number] Dexmedetomidine HCl 400 64.5 mcg In Ns 100 ml @ Per Protocol IV CONT TRESSA Rx#: [id number] 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
[2018-03-13] MEDS: ENOXAPARIN 40 MG/0.4 ML SYR SC SCH (09:31)
[2018-03-13] MEDS: PREGABALIN 150 MG CAP PO SCH ×3 (09:31→20:24)
[2018-03-13] MEDS: FAMOTIDINE 20 MG TAB PO SCH ×2 (09:31→20:24)
[2018-03-13] MEDS: morphINE SR 15 MG TAB PO SCH ×2 (09:31→20:23)
[2018-03-13] MEDS: SENNOSIDES/DOCUSATE SODIUM TAB PO SCH ×2 (09:31→20:24)
--- NOTE | 2018-03-13 09:36 | PDINTPN ---
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 Did better on Precedex last night -continue current pain medication * Hypotension-resolved * History of hypertension * Hepatitis-C * Attention deficit disorder/depression * VT prophylaxis * Stress ulcer prophylaxis * PT/OT-out of bed to chair Subjective: Resting comfortably in bed. Pain well controlled. Denies any breathlessness. Objective: Vital Signs Temp Pulse Resp BP Pulse Ox 36.9 C 73 15 122/54 H 95 03/13/18 07:56 03/13/18 07:56 03/13/18 07:56 03/13/18 07:56 03/13/18 07:56 Laboratory Results 03/11/18 05:30 03/11/18 05:30 03/12/18 03/13/18 03/14/18 05:59 05:59 05:59 Intake Total 2079.2 2562.5 Output Total 50 85 Balance 2029.2 2477.5 - Time Spent With Patient Time Spent With Patient: 25 min of time spent with patient, over 1/2 involved with coordination of care or counseling Case discussed with nursing Physical Exam - Physical Exam General Appearance: alert EENT: PERRL/EOMI, normal ENT inspection Neck: non-tender, full range of motion, supple, normal inspection Respiratory: chest non-tender, lungs clear, normal breath sounds Cardiac/Chest: normal peripheral pulses, regular rate, rhythm Peripheral Pulses: 2+: carotid (R), carotid (L), femoral (R), femoral (L), dorsalis-pedis (R), dorsalis-pedis (L) Abdomen: normal bowel sounds, non-tender, soft Male Genitalia: deferred Rectal: deferred Skin: normal color, warm/dry Extremities: normal range of motion, non-tender, normal inspection, normal capillary refill Neuro/Psych: alert ICD10 Worksheet Patient Problems: Problems Problem Status Onset Thoracic spinal stenosis Acute Thoracic spinal stenosis Acute
[2018-03-13] MEDS ORDERED: ADDERALL 30 MG PO ONE (11:00)
[2018-03-13] MEDS: DEXTROAMPHETAMINE PO SCH (11:52)
[2018-03-13] MEDS: AMPHETAMINE PO SCH (11:52)
[2018-03-13] MEDS: oxyCODONE IR 5 MG TAB PO PRN ×2 (15:08→18:10)
[2018-03-13] MEDS: PRAMIPEXOLE 1 MG TAB PO SCH ×2 (17:56→20:24)
[2018-03-13] MEDS: LISINOPRIL 20 MG TAB PO SCH (20:23)
[2018-03-13] MEDS: traZODone 50 MG TAB PO SCH (21:49)
[2018-03-13] MEDS: METHOCARBAMOL 750 MG TAB PO PRN (21:52)
[2018-03-13] MEDS: LORazepam 2 MG/ML INJ IVP PRN (21:52)
[2018-03-14] MEDS: oxyCODONE IR 5 MG TAB PO PRN ×6 (01:39→18:34)
[2018-03-14] MEDS: METHOCARBAMOL 750 MG TAB PO PRN ×2 (05:09→12:35)
[2018-03-14] MEDS: ACETAMINOPHEN 500 MG TAB PO SCH ×4 (05:09→21:24)
[2018-03-14] MEDS: DEXAMETHASONE 4 MG/ML VIAL IVP SCH ×2 (05:10→15:29)
--- NOTE | 2018-03-14 07:34 | NEUSURGPN ---
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 low back pain, and right anterior oglesby cooker tender Objective: AxO x3 MAEx4 5/5 BUE, BLE, limited RLE exam due to pain SILT, increased pain to touch over right anterior oglesby incision dressed, CDI ANDI x 1 Catheter Insertion Date: 03/08/18 - Physician Discussed Patient with : Brittani Neurosurgery Physical Exam - Vitals, I&O, Labs I and O 03/13/18 03/14/18 03/15/18 05:59 05:59 05:59 Intake Total 2562.5 800 Output Total 85 55 Balance 2477.5 745 Weight 116 kg Intake: Oral (ml) 2060 800 IV Intake (ml) 380 IV Infused (ml) 122.5 Dexmedetomidine HCl 400 64.5 mcg In Ns 100 ml @ Per Protocol IV CONT TRESSA Rx#: [id number] morphINE C[employer]ODIAN [employer] EQUIPMENT See Protocol 58 IV PRN PRN Rx#: [id number] Output: ANDI Drain Output (ml) 85 55 Back Valentin Kraft 85 55 Other: Intake Quantity Yes Yes Sufficient Number of Voids Toilet 3 3 Number of Stools Toilet 1 Vital Signs Temp Pulse Resp BP Pulse Ox 36.6 C 60 12 113/65 93 03/14/18 04:00 03/14/18 04:00 03/14/18 04:00 03/14/18 04:00 03/14/18 04:00 Laboratory Results 03/11/18 05:30 03/11/18 05:30 ICD10 Worksheet Patient Problems: Problems Problem Status Onset Thoracic spinal stenosis Acute Thoracic spinal stenosis Acute
[2018-03-14] MEDS: DEXTROAMPHETAMINE PO SCH (07:49)
[2018-03-14] MEDS: AMPHETAMINE PO SCH (07:49)
[2018-03-14] MEDS: SENNOSIDES/DOCUSATE SODIUM TAB PO SCH ×2 (08:04→20:49)
[2018-03-14] MEDS: ENOXAPARIN 40 MG/0.4 ML SYR SC SCH (08:05)
[2018-03-14] MEDS: FAMOTIDINE 20 MG TAB PO SCH ×2 (08:05→20:49)
[2018-03-14] MEDS: morphINE SR 15 MG TAB PO SCH ×2 (08:05→20:49)
[2018-03-14] MEDS: PREGABALIN 150 MG CAP PO SCH ×3 (08:05→21:24)
--- NOTE | 2018-03-14 08:52 | PDINTPN ---
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 Comfortable. Pain well controlled. Objective: Vital Signs Temp Pulse Resp BP Pulse Ox 36.7 C 82 18 127/75 H 95 03/14/18 07:49 03/14/18 07:49 03/14/18 07:49 03/14/18 07:49 03/14/18 07:49 Laboratory Results 03/11/18 05:30 03/11/18 05:30 03/13/18 03/14/18 03/15/18 05:59 05:59 05:59 Intake Total 2562.5 800 Output Total 85 55 Balance 2477.5 745 - Time Spent With Patient Time Spent With Patient: 25 min of time spent with patient, over 1/2 involved coordination of care counseling. Physical Exam - Physical Exam General Appearance: WD/WN, alert, no apparent distress EENT: PERRL/EOMI, normal ENT inspection, pharynx normal, TMs normal Neck: non-tender, full range of motion, supple, normal inspection Respiratory: chest non-tender, lungs clear, normal breath sounds Cardiac/Chest: normal peripheral pulses, regular rate, rhythm Peripheral Pulses: 2+: carotid (R), carotid (L), femoral (R), femoral (L), dorsalis-pedis (R), dorsalis-pedis (L) Abdomen: normal bowel sounds, non-tender, soft Male Genitalia: deferred Rectal: deferred Skin: normal color, warm/dry Extremities: normal range of motion, non-tender, normal inspection, normal capillary refill ICD10 Worksheet Patient Problems: Problems Problem Status Onset Thoracic spinal stenosis Acute Thoracic spinal stenosis Acute
[2018-03-14] MEDS: PRAMIPEXOLE 1 MG TAB PO SCH ×2 (18:34→20:49)
[2018-03-14] MEDS: LISINOPRIL 20 MG TAB PO SCH (20:46)
[2018-03-14] MEDS: traZODone 50 MG TAB PO SCH (20:49)
[2018-03-15] MEDS: DEXAMETHASONE 4 MG/ML VIAL IVP SCH (03:30)
[2018-03-15] MEDS: oxyCODONE IR 5 MG TAB PO PRN ×3 (03:38→10:14)
[2018-03-15] MEDS: ACETAMINOPHEN 500 MG TAB PO SCH (05:55)
[2018-03-15] MEDS: METHOCARBAMOL 750 MG TAB PO PRN (07:12)
[2018-03-15 07:14] VITALS: BP 121/71
[2018-03-15] MEDS: AMPHETAMINE PO SCH (07:47)
[2018-03-15] MEDS: DEXTROAMPHETAMINE PO SCH (07:47)
[2018-03-15] MEDS: PREGABALIN 150 MG CAP PO SCH (08:52)
[2018-03-15] MEDS: morphINE SR 15 MG TAB PO SCH (08:52)
[2018-03-15] MEDS: FAMOTIDINE 20 MG TAB PO SCH (08:52)
[2018-03-15] MEDS: SENNOSIDES/DOCUSATE SODIUM TAB PO SCH (08:53)
[2018-03-15] MEDS: ENOXAPARIN 40 MG/0.4 ML SYR SC SCH (08:53)
[2018-03-15] MEDS ORDERED: MAGNESIUM OXIDE 400 MG TAB PO SCH (09:00)
--- NOTE | 2018-03-15 09:25 | NEUSURGPN ---
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 low back pain, walking around room Objective: AxO x3 MAEx4 5/5 BUE, BLE, SILT, increased pain to touch over right anterior oglesby incision dressed, CDI ANDI x 1 Catheter Insertion Date: 03/08/18 - Physician Discussed Patient with : Brittani Neurosurgery Physical Exam - Vitals, I&O, Labs I and O 03/14/18 03/15/18 03/16/18 05:59 05:59 05:59 Intake Total 800 2650 Output Total 55 55 Balance 745 2595 Intake: Oral (ml) 800 2650 Output: ANDI Drain Output (ml) 55 55 Back Valentin Kraft 55 55 Other: Intake Quantity Yes Yes Sufficient Number of Voids Toilet 3 2 Number of Stools Toilet 2 Vital Signs Temp Pulse Resp BP Pulse Ox 36.8 C 66 18 121/71 H 94 03/15/18 00:00 03/15/18 07:14 03/15/18 07:14 03/15/18 07:14 03/15/18 07:14 Laboratory Results 03/11/18 05:30 03/11/18 05:30 ICD10 Worksheet Patient Problems: Problems Problem Status Onset Thoracic spinal stenosis Acute Thoracic spinal stenosis Acute
--- NOTE | 2018-03-21 12:13 | GOP ---
DATE OF OPERATION: 03/08/2018 SURGEON: Jorge Peter MD GLAZE MAKER: Obey Rasheed PA-C ANESTHESIA: GETA. PREOPERATIVE DIAGNOSIS: Significant central calcified disk herniation at T11-12 with spinal cord com pression and left leg numbness with a concomitant footdrop. POSTOPERATIVE DIAGNOSIS: Significant central calcified disk herniation at T11-12 with spinal cord co mpression and left leg numbness with a concomitant footdrop. PROCEDURE PERFORMED: Left-sided T12 transpedicular/costotransversectomy approach for T11-12 diskecto my and T11-12 decompression, performance of a T11-12 laminectomy, T11-L1 posterior spinal fusion, mohsen cement of segmental instrumentation, use of autograft, use of allograft, use of the O arm and stealth neuro navigation, use of neuro monitoring. FINDINGS: SPECIMENS: None. ESTIMATED BLOOD LOSS: 400 cc. INDICATIONS: The patient is a pleasant 42-year-old male who began having left leg numbness and a avelina tdrop. Imaging revealed a very large T11-12 disk herniation centrally with cord compression and cord signal change. Disk was slightly calcified on CT scan. I conferred with my senior accounting clerk, Dr. Yumi Murphy and we both felt that a costotransversectomy was the best approach to safely decompre ss the spinal cord. I met with Radames on multiple occasions and his as well. We did discuss this is a high-risk procedure, but at this young age, the downside of doing nothing could be very signifi cant and life altering. After multiple conversations and after discussions of risks, benefits, he si gned a consent for the procedure. DESCRIPTION OF PROCEDURE: The patient was brought to the operating room and a sign-in was performed. He was given appropriate IV antibiotics to prevent infection. He was smoothly induced under genera l anesthesia and intubated without difficulty. Appropriate IV access was obtained. An arterial line was placed and orders for MAPS goals of 85 or greater were given. SCDs were placed to prevent DVT. A Luna catheter was placed and neuromonitoring electrodes were placed and baseline signals were obt ained prior to the flip. The patient was then turned to a prone position on an open Valentin table an d pressure points were padded well. Neuromonitoring signals were stable after the flip. His back wa s shaved and washed with chlorhexidine shampoo and rubbing alcohol which was allowed to dry. A midli ne incision was planned. ChloraPrep was used to sterilize the skin. A sterile field was created wit h blue towels, Ioban and a sterile surgical drape. Prior to the procedure, a time-out was performed in which all members of surgery, nursing, anesthesia went over the necessary checklist items and agre ed to proceed. 10 cc of 0.25% Marcaine with 1:200,000 parts of epinephrine was injected along the pl anned incision line. A #10 scalpel was used to incise the skin and dermis and then Bovie electrocaut josiah was used to split the lumbodorsal fascia and take down the paraspinal musculature off the spinal column bilaterally. Spinous process was clamped and the patient was draped sterilely. An O arm was brought into the field. A navigational spin was performed, it was removed, and accuracy was verified . Now that we had our levels, we completed our decompression. exposure and tissue dissect ion, careful not to violate the adjacent segment joints or their capsules. We placed our pedicle scr ew instrumentation with the aid of navigation, leaving the left T12 pedicle without a screw as this w ould be removed during the decompressive portion procedure. At this point in time, we proceeded with our decompression and a T11-12 laminectomy was performed and then we drilled down the T12 pedicle an d removed the rib head as well thereby allowing us complete lateral exposure to the T11-12 disk. Sta rting laterally, I began the diskectomy and then slowly medially, careful not to retract on the theca l sac or the spinal cord, but rather removing the disk from lateral to medial. Once enough disk mate rial had been removed, I was able to carefully insert a down pusher onto the cord onto the more media l disk fragment and I was able to push down some of the calcified disk away from the cord rather than move the cord away from it. There were no neuromonitoring changes at all during the procedure and w e checked frequent motors and sensories. Satisfied that our decompression was complete, , and we brought the O arm back in the field and performed a . We found all of our instrumen tation to be in good position, and we found that a section of the spinal canal where there was stenos is was adequately decompressed. Of note, all of the bone that we harvested during the decompressive portion of the procedure was cleaned and prepared for the arthrodesis portion. At this point in time , we then measured and selected a krystle, set screws, and final tightened them. I irrigated the operative bed out with copious antibiotic solution and arthrodesis posterior laterally and laid t he allograft and autograft and putty in the bilateral gutters for fusion purposes. We proceeded with closure. A #7 flat ANDI was laid in the operative bed and we began closing the muscle and the fascia with 0 Vicryl suture. We injected half plain Marcaine in the paraspinal musculature for postoperativ e pain control. We irrigated out the suprafascial compartment with antibiotic solution to prevent in fection and we closed the dermis with inverted pop-off 2-0 Vicryl suture. The skin edges approximate d well. Skin was cleaned with a wet and dry sponge. A layer of Dermabond was applied. Sterile dres sing was placed. The drainage tube was secured with a stitch and hooked up to a bulb to full isabell kala. The patient was turned back on the gurney, reversed from anesthesia, and extubated without dif ficulty. All counts were correct. I was there for the entirety of the procedure. There were no imm ediate surgical or anesthetic complications. All neuromonitoring signals remained stable during the procedure. The patient was taken to recovery area where he was found to be in stable medical and aric rologic condition but was having significant postoperative pain, so we did send him to step-down over night on a Precedex drip for his comfort. I updated the patient's personally regarding the deta ils of the procedure, and she was grateful for the care he had received. DRAINS: #7 ANDI x1 to bulb suction. COMPLICATIONS: None. IMPLANTS: The [employer] Solera 5.5/6.0 system was used. Pedicle screws were placed on the left and right at T11 measuring 6.5 x 45 mm. The left pedicle at T12 was not instrumented. The right pedicle at T12 was placed with a 6.5 x 45 mm pedicle screw and bilateral pedicles at L1 were placed, 6.5 x 4 5 mm pedicle screws were placed, bilateral pre-cut and pre-bent titanium rods were placed and set wit h set screws, 30 cc of crushed cortical cancellous allograft chips were used as was 20 cc of a Progen ix Plus DBM/allograft mixture, and the patient's own bone was also harvested, crushed, and prepared f or arthrodesis. /[id number]/[id number]
== END 2018-03-15 11:30 | disposition home or self-care (01) | DRG 460 ==
LOC: F3N 12:19 → F2N 22:04
PROVIDERS: ADMIT Neurological Surgery; ATTEND Neurological Surgery
PROC: 0RGA0AJ Fusion of Thoracolumbar Vertebral Joint with Interbody Fusion Device, Posterior Approach, Anterior Column, Open Approach (ICD-10-PCS; principal; 2018-03-08 14:00)
PROC: 8E0WXBZ Computer Assisted Procedure of Trunk Region (ICD-10-PCS; principal; 2018-03-08 14:00)
PROC: 0RG60AJ Fusion of Thoracic Vertebral Joint with Interbody Fusion Device, Posterior Approach, Anterior Column, Open Approach (ICD-10-PCS; principal; 2018-03-08 14:00)
PROC: 0RT90ZZ Resection of Thoracic Vertebral Disc, Open Approach (ICD-10-PCS; principal; 2018-03-08 14:00)
PROC: 4A10X4G Monitoring of Central Nervous Electrical Activity, Intraoperative, External Approach (ICD-10-PCS; principal; 2018-03-08 14:00)
PROC: BR1 Imaging, Axial Skeleton, Except Skull and Facial Bones, Fluoroscopy (ICD-10-PCS; principal; 2018-03-08 14:00)
PROC: 02HV33Z Insertion of Infusion Device into Superior Vena Cava, Percutaneous Approach (ICD-10-PCS; 2018-03-08 14:00)
DX: M47.14 Other spondylosis with myelopathy, thoracic region (principal); I95.81 Postprocedural hypotension; R73.9 Hyperglycemia, unspecified; T38.0X5A Adverse effect of glucocorticoids and synthetic analogues, initial encounter; F41.8 Other specified anxiety disorders; I10 Essential (primary) hypertension; F90.9 Attention-deficit hyperactivity disorder, unspecified type; B19.20 Unspecified viral hepatitis C without hepatic coma
CPT/HCPCS: 97116-GP; 97161-GP; 97165-GO; 97530-GO; 97530-GP; 97535-GO; C1713; C1751; C1762; J0171; J0690; J1100; J1170; J1265; J1650; J2060; J2250; J2270; J2370; J2405; J2704; J2800; J3010; J3360; J7060; P9041